=== PATIENT | male | born 1955 ===

== ENCOUNTER → 2019-06-11 14:14 | Outpatient (CLI) | payer MEDICAID | END | disposition home or self-care (01) | LOC: D.LABREF 14:14 | PROVIDERS: ATTEND Internal Medicine Pulmonary Disease | DX: R93.89 Abnormal findings on diagnostic imaging of other specified body structures (principal) ==

== ENCOUNTER → 2019-06-12 10:13 | Outpatient (CLI) | payer MEDICAID ==
[2019-06-13 10:10] LABS: ANA REFLEX - DIRECT Negative (Negative); IMMUNOGLOBULIN A 354 mg/dL (61-437); IMMUNOGLOBULIN G 1142 mg/dL (700-1600); IMMUNOGLOBULIN M 115 mg/dL (20-172)
[2019-06-15 19:08] LABS: IMMUNOGLOBULIN E 193 IU/mL (6-495)
== END | disposition home or self-care (01) ==
LOC: D.LABREF 10:13
PROVIDERS: ATTEND Internal Medicine Pulmonary Disease
DX: R93.89 Abnormal findings on diagnostic imaging of other specified body structures (principal)